=== PATIENT | female | born 2000 | race Caucasian/White ===

== ENCOUNTER 2025-04-07 12:15 | Outpatient (RCR) | payer OTHER, SELFPAY ==
[2025-03-24 12:02] VITALS: BMI 36.2
[2025-03-24 12:03] VITALS: BP 108/62; PULSE 60; TEMP 36.9
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
--- NOTE | 2025-03-26 14:46 | HO.PHP ---
Clients case was opened and reviewed in teams today.
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
== END 2025-04-07 23:59 | disposition home or self-care (01) ==
LOC: HO.PHPA 12:15
PROVIDERS: Visit Provider Psychiatry & Neurology Psychiatry
DX: F43.0 Acute stress reaction (principal); F53.0 Postpartum depression; Z79.899 Other long term (current) drug therapy
CPT/HCPCS: 90791; 90853

== ENCOUNTER 2025-04-13 08:10 | Outpatient (RCR) | payer OTHER, SELFPAY ==
--- NOTE | 2025-04-14 08:40 | PC.NURSE ---
Karen spoke to staff and reported that she has too much going on and is not going to be able to do IOP LOC at this time. She denied any safety issues. She reports that she is filing for custody of her baby and is getting her baby back today. She stated she has an appointment with her therapist today and has an appointment with [facility]. She will call the program if she needs PHP/IOP in the future.
== END 2025-04-13 23:59 | disposition home or self-care (01) ==
LOC: HO.IOP 08:10
PROVIDERS: Visit Provider Psychiatry & Neurology Psychiatry
DX: F43.0 Acute stress reaction (principal); F53.0 Postpartum depression
CPT/HCPCS: 90791